=== PATIENT | male | born 2000 | race Caucasian/White ===

== ENCOUNTER 2023-11-25 15:58 | Emergency (ER) | payer OTHER, SELFPAY ==
[2023-11-25] VITALS (11 sets, daily range): BP systolic 127–146; BP diastolic 71–88; PULSE 87–108; RESP 12–20; TEMP 36–37.2; O2SAT 94–100; BMI 25.8
--- NOTE | ~2023-11-25 | XR_ITS ---
EXAMINATION: XR SHOULDER, RIGHT CLINICAL INFORMATION: Dislocation COMPARISON: None available. TECHNIQUE: AP external rotation, Grashey, scapular Y, and axillary views of the right shoulder. FINDINGS: No fracture. There is an anterior inferior dislocation of the shoulder joint. There is soft tissue swelling. XR/XR shoulder RT min 2V IMPRESSION: Anterior inferior dislocation of the shoulder joint. Electronically signed by: Talia Bonilla MD 11/25/2023 05:11 PM EDT
--- NOTE | ~2023-11-25 | XR_ITS ---
EXAMINATION: XR SHOULDER, RIGHT CLINICAL INFORMATION: Post reduction radiographs. COMPARISON: Right shoulder radiographs dated 11/25/2023 at 4:14 PM. TECHNIQUE: Four views of the right shoulder. FINDINGS: There is no fracture or dislocation. The right humeral head is well-seated within the glenoid fossa. Acromioclavicular joint is intact. The visualized right lung is clear. Visualized soft tissues normal in appearance. XR/XR shoulder RT min 2V IMPRESSION: No fracture or dislocation status post reduction. Electronically signed by: Esvin Vidal DO 11/25/2023 08:57 PM EDT
--- NOTE | 2023-11-25 16:03 | ED_ITS ---
HPI - Extremity Injury (Upper) General Chief Complaint: Fall Stated Complaint: Work injury Time Seen by Provider: 11/25/23 17:47 Source: patient and RN notes reviewed History of Present Illness HPI narrative: 23-year-old male presents for evaluation of right shoulder pain. 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 Patient states he caught himself under his arms. Patient states he had instant pain to the right shoulder. He is unable to move his right arm at this time. Denies any previous injury. He is right-hand dominant. Patient states 10/10 pain with movement. He denies any paresthesias or paralysis. The incident occurred at approximately 12:45 p.m. today. He denies any history of fracture or previous dislocation. He denies any tobacco, no regular alcohol use, no drug use. He last ate food at approximately 12:00 p.m. today. Related Data Previous Rx's ?Medication ?Instructions ?Recorded oxycodone-acetaminophen 5 mg-325 1 tab PO Q4-6H PRN severe pain 11/25/23 mg tablet (Endocet) (scale score 7-10) #14 tabs Allergies Allergy/AdvReac Type Severity Reaction Status Date / Time No Known Allergies Allergy Verified 11/25/23 16:06 Review of Systems Cardiovascular: Cardiovascular: Denies chest pain and Denies dyspnea on exertion Respiratory: Respiratory: Denies dyspnea on exertion Gastrointestinal: Gastrointestinal: Denies abdominal pain Musculoskeletal: Musculoskeletal: Denies back pain, Denies myalgias, Reports arthralgias and Reports limited range of motion [facility] Past Medical History Attestation statement: The following information was validated with the patient. [facility] Narrative: Denies past medical Social History Social History Smoked in Last 30 Days: No Use of substances other than those prescribed or required for medical reasons: No Advance Directives: No Advance Directives Information Provided: No Do you have a plan to hurt others: No Plan Physical Exam Vital Signs: Vital Signs: Last Vital Signs Temp 98.9 F 11/25/23 20:50 Pulse 87 11/25/23 20:50 Resp 16 11/25/23 20:50 BP 134/79 11/25/23 20:50 Pulse Ox 95 11/25/23 20:50 O2 Del Method Room Air 11/25/23 20:50 Oxygen Flow Rate 2 11/25/23 19:24 BMI result Body Mass Index 25.8 Const: Other: Appears uncomfortable General: cooperative and healthy appearing HEENT: Other: Oropharynx is moist. No chipped or loose dentition. Resp: Auscultation: clear to auscultation bilaterally Cardio: Rate: regular rate Rhythm: regular rhythm Extrem: Other: Depression to the right shoulder. There is no skin breakdown. No ecchymosis. No crepitus. Sales Operations Lead is 5/5 bilaterally. Decreased range of motion of right arm at the shoulder secondary to pain. Radial pulses are +2 and equal bilaterally. Capillary refills less than 2 seconds Course Course Course Narrative: This is a Rapid Medical Examination (RME) performed by Jeronimo Austin PA-C in [facility]. Full HPI, ROS, assessment and treatment plan per primary provider in the Main ED. 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 reports difficulty moving his right shoulder. + unable to abduct right shoulder. no obvious deformity however exam limited in triage. 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 nv intact distally. Plan: xrs Reevaluation(s) Reevaluation #1: 8:15 p.m. patient is resting comfortably at this time. He is alert and awake. Parents are at the bedside. Reassessment at this time, pulses sensation are intact. Reduction remains intact. Reviewed all discharge instructions with the patient and parents. Reviewed narcotic safety. No further questions at this time Medications Administered Discontinued Medications Generic Name Dose Route Start Last Admin Trade Name Freq PRN Reason Stop Dose Admin Hydromorphone HCl 1 mg 11/25/23 18:24 11/25/23 18:47 Hydromorphone Hcl 1 Mg/Ml Syringe IVPUSH 11/25/23 18:25 1 mg ONCE ONE Administration Protocol Sodium Chloride 1,000 mls @ 999 mls/hr 11/25/23 18:00 11/25/23 20:23 Ns IV 11/25/23 19:[address] Infusion Propofol 50 mg 11/25/23 19:18 11/25/23 19:38 Propofol 200 Mg/20 Ml Vial IVPUSH 11/25/23 19:19 50 mg ONCE ONE Administration Propofol 25 mg 11/25/23 19:20 11/25/23 19:38 Propofol 200 Mg/20 Ml Vial IVPUSH 11/25/23 19:21 25 mg ONCE ONE Administration Medical Decision Making Medical Decision Making [facility] Narrative: 23-year-old male who denies significant past medical history, right shoulder dislocation on exam and confirmed by x-ray. I have had an extensive discussion with the patient and his mother at the bedside regarding treatment options. Discussed with and reviewed all risks and benefits of point of care ultrasound with intra-articular block of the right shoulder for reduction however the patient and mom have refused. The patient was agreeable to a single attempt without medications. This was briefly attempted by this provider and Dr. Collins however was unable to be tolerated and was immediately discontinued. Myself along with Dr. Collins have discussed the risks and benefits of moderate sedation with the patient and his mother. They are agreeable to this. Consent forms have been signed. Differential Diagnosis Differential Diagnoses: The differential diagnosis associated with the presentation includes Fracture Dislocation Contusion Sprain Ligamentous injury Admission/Observation Consideration of admission/observation: Escalation of care including admission/observation considered Consideration for inpatient admission if clinically warranted Radiology Impression Discussion of test interpretation with radiology: I have reviewed the radiologist's reading. Radiologist Impression: Right shoulder postreduction x-ray, successful reduction. No fracture. Reviewed with Dr. Collins. [place] [id number] XRay Report Signed Patient: Donny Irene MR#: [id number] : 2000 Acct:[id number] Age/Sex: 23 / M ADM Date: 11/25/23 Loc: HO.ED Attending Dr: Ordering Physician: Love Austin Date of Service: 11/25/23 Procedure(s): XR shoulder RT min 2V Accession Number(s): [id number] cc: Physician,Unknown ; Love Austin~ EXAMINATION: XR SHOULDER, RIGHT CLINICAL INFORMATION: Dislocation COMPARISON: None available. TECHNIQUE: AP external rotation, Grashey, scapular Y, and axillary views of the right shoulder. FINDINGS: No fracture. There is an anterior inferior dislocation of the shoulder joint. There is soft tissue swelling. XR/XR shoulder RT min 2V IMPRESSION: Anterior inferior dislocation of the shoulder joint. Electronically signed by: Talia Bonilla MD 11/25/2023 05:11 PM EDT Dictated By: Talia Bonilla MD Signed By: <Electronically signed by Talia Bonilla MD in OV> 11/25/23 1711 DD/ 1612 TD/TT: 11/25/23 1618 Bike Shop Manager: DEMETRIUS Prescription Management I considered prescription management with: Pain Medication Procedures Orthopedic Joint Reduction right shoulder dislocation reduction: Time Out Performed: Yes Joint Reduction Location: shoulder Analgesia: procedural sedation ( propofol 75 mg IV given during the procedure) Shoulder Technique Used (if applicable): traction/counter-traction Post-reduction neuro exam: intact Post-reduction vascular: intact Post Reduction X-Ray Obtained: Yes Post Reduction X-Ray Results: reduced Splint Applied: Yes ( right arm sling) Patient Tolerated Procedure: well Procedural Sedation Indication: fracture/dislocation reduction ASA Class: I Mallampati Class: I Time of Last PO Intake: 12:00 Preparation: front desk monitor applied, pulse oximeter, capnometry used, supplemental O2 applied, reversal agents at bedside, suction/airway equipment at bedside and IV secured Patient Tolerated Procedure: well and no complications Complications: none Additional Comments: Consent paperwork completed. Time-out was performed. All propofol administered by Dr. Collins. Reduction completed by this provider. Patient tolerated the procedure without any immediate complications. Sling applied. Right radial pulse +2, capillary refill less than 2 seconds. Postreduction x-ray ordered. Discharge Plan Discharge Clinical Impression: Dislocation of shoulder region Patient Disposition: Home, Self-Care Instructions: Shoulder Dislocation (ED) Additional Instructions: Rest. Ice. Avoid strenuous activity. Sling as directed, keep on at all times. Percocet as directed. Drive, operate heavy machinery, drink alcohol while taking this medication as it will make you sleepy. This is a narcotic medication. Follow-up with orthopedic referral, Dr. Quinones. Call Tuesday to schedule follow up appointment. Watch for any changes in symptoms, severe pain, loss of sensation, or any other concern return immediately to the emergency department Follow-up with your primary care provider. Call this week to schedule a follow- up appointment. Return to the emergency department if you have any worsening of symptoms, or any concerns. Get well soon! Prescriptions: New oxycodone-acetaminophen [Endocet] 5-325 mg tablet 1 tab PO Q4-6H PRN (Reason: severe pain (scale score 7-10)) Qty: 14 0RF Rx Instructions: Partial Fill upon patient request. Referrals: Deven Quinones MD [Physician] - 1 week (Right shoulder dislocation) Stand Alone Forms: Work/School Release Interventions: ED Discharge Assessment Last Done: 11/25/23 20:50 Discharge Date/Time: 11/25/23 20:51 Print Language: Salvadorean
[2023-11-25] MEDS: HYDROmorphone HCl 1 MG/ML SYRINGE IVPUSH (18:47)
[2023-11-25] MEDS: 0.9 % Sodium Chloride 1,000 ML 999 ML IV (19:20)
[2023-11-25] MEDS: propofoL 200 MG/20 ML VIAL 50 MG IVPUSH (19:38)
[2023-11-25] MEDS: propofoL 200 MG/20 ML VIAL 25 MG IVPUSH (19:38)
--- NOTE | 2023-11-25 19:54 | PC.NURSE ---
this rn assumed care of pt. 1919- , Home PA, Osmar RT, this RN and Maliha RN at bedside with pt. safety equipment at bedside. 50mg Propofol administered by provider. 1920- pt noted to still be alert with pain, 25mg propofol administered by provider. 1923- pt noted to be drowsy but alert, shoulder placed by provider. sling placed. 1924- end time called. vss. 1950- pt returned from xray- pt ambulated with steady gait, denies dizziness, sob and chest pain. vs obtained. pt appears at baseline. pt a&ox4.
== END 2023-11-25 20:51 | disposition home or self-care (01) ==
PROVIDERS: Emergency Provider Emergency Medicine Emergency Medical Services
DX: S43.004A Unspecified dislocation of right shoulder joint, initial encounter (principal); W13.3XXA Fall through floor, initial encounter; Y93.H3 Activity, building and construction; Y92.61 Building [any] under construction as the place of occurrence of the external cause; Y99.0 Civilian activity done for income or pay
CPT/HCPCS: 23650; 73030; 96361; 96374; 99152; 99252; 99285; J1170; J2704

== ENCOUNTER 2023-12-14 13:47 | Outpatient (AMB) | payer OTHER, SELFPAY ==
--- NOTE | 2023-12-14 13:51 | MHC.OFFVIS ---
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 Patient reports that he was working on a second floor when he fell through old kassidy, he caught himself under his arms. He presented to [facility] where xrays were taken and placed in a splint. Currently he has intermittent pain that increases with movement however he has had some improvement since injury. His pain is mostly located at the posterior aspect and at times at the anterior aspect. Occasional numbness and tingling. He has been out of work since his injury. 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 He reports he was working on a second floor when he fell through the old kassidy and he caught himself under his arms. He was seen at ER where x-rays were performed and he was placed in a splint. He currently states he has improvement in his pain however he continues to have intermittent pain at the posterior aspect of his in his shoulder that occasionally radiates to his anterior aspect. His pain is aggravated with movement. He also experiences intermittent numbness and tingling in his shoulder. He takes Advil PRN. He has been out of work since his DOI. [facility] Social History (Updated 12/14/23 @ 13:54 by SVETLANA Albright) Patient Tobacco Use Status: Never used Tobacco Current occupational status: employed Current occupation: construction, right hand dominant Review of Systems Const All systems reviewed & are unremarkable except as noted in HPI and below Physical Exam Vital Signs: BMI result Body Mass Index 25.1 Const General: cooperative, healthy appearing, comfortable, no acute distress, well developed and alert Orientation/consciousness: patient oriented x3 HEENT Head: Yes normal to inspection, Yes normocephalic and Yes atraumatic Eyes General: appearance normal, both eyes and all related structures Resp Effort & Inspection: normal respiratory effort and able to speak in complete sentences Cardio Rate: regular rate Peripheral pulses: Peripheral pulses 2+ throughout GI Palpation (GI): Soft to palpation Skin Lesions: no lesions Rashes: no rashes Neuro General: patient oriented x3 Extrem Other: Right shoulder: Normal to inspection. Tenderness over the bicipital groove and along the deltoid region of the shoulder. Forward flexion to 175, external rotation to 90, internal rotation to S1. 5/5 RTC strength. Positive Weaver?s and apprehension test. NVI. Results Reviewed Results Reviewed: X-rays of right shoulder the obtained in ED on nov 24 the office today show successful reduction without any fracture or bony abnormalities. Assessment & Plan Assessment & Plan (1) Dislocation of right shoulder joint: Code(s): S43.004A - Unspecified dislocation of right shoulder joint, initial encounter Category: Medical Qualifiers: Encounter type: initial encounter Qualified Code(s): S43.004A - Unspecified dislocation of right shoulder joint, initial encounter Plan He will discontinue the sling. I encouraged a course of physical therapy to work on ROM, periscapular stabilization and RTC strengthening. He will avoid any type of lifting, pushing, pulling, or carrying more than a cellphone with that right arm for next 6 weeks. 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 Orders: Orders PT Evaluation and Treatment Today S43.004A - Unspecified dislocation of right shoulder joint, initial encounter Patient Instructions: Scribed for Gwendolyn Osorio PA-C, by Jassi Killian vp medical, on 12/14/2023 at 2:15 PM EST.? I, Gwendolyn Osorio PA-C, have personally reviewed and agree with the information entered by the scribe. Coding Level of Care Code New Pt Level 3 (55223) Complex EM visit Add On G2211 Diagnoses Dislocation of right shoulder joint, initial encounter S43.004A Encounter type: initial encounter
[2023-12-14 13:53] VITALS: BMI 25.1
== END 2023-12-14 15:10 | disposition home or self-care (01) ==
PROVIDERS: Visit Provider Physician Assistant
DX: S43.004A Unspecified dislocation of right shoulder joint, initial encounter (principal); W13.3XXA Fall through floor, initial encounter; Z04.2 Encounter for examination and observation following work accident
CPT/HCPCS: 99203; G2211

== ENCOUNTER → 2023-12-14 13:47 | Outpatient (BNVA) | payer OTHER, SELFPAY | PROVIDERS: Visit Provider Physician Assistant | DX: S43.004A Unspecified dislocation of right shoulder joint, initial encounter (principal) | CPT/HCPCS: 99202 ==

== ENCOUNTER 2024-01-25 13:05 | Outpatient (AMB) | payer OTHER, SELFPAY ==
--- NOTE | 2024-01-25 13:14 | MHC.OFFVIS ---
Vital Signs 01/25/24 13:19 Height 5 ft 8 in Weight 165 lb BMI 25.1 Intake Visit Reasons: OV- 6wk f/u rt shoulder disclocation Allergies No Known Allergies Allergy (Verified 01/25/24 13:19) HPI HPI OV- 6wk f/u rt shoulder disclocation: Details: The patient is a 23-year-old male who presents to the office today for follow up of right shoulder dislocation. He states he is doing well since the last visit. He continues to work with PT, he is back to using his shoulder. 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 [facility] Social History Patient Tobacco Use Status: Never used Tobacco Current occupational status: employed Current occupation: construction, right hand dominant Review of Systems Const All systems reviewed & are unremarkable except as noted in HPI and below Physical Exam Vital Signs: BMI result Body Mass Index 25.1 Right shoulder: Normal to inspection. Tenderness over the bicipital groove and along the deltoid region of the shoulder. Forward flexion to 175, external rotation to 90, internal rotation to S1. 5/5 RTC strength. Positive Weaver?s and apprehension test. NVI. Const General: cooperative, healthy appearing, comfortable, no acute distress, well developed and alert Orientation/consciousness: patient oriented x3 HEENT Head: Yes normal to inspection, Yes normocephalic and Yes atraumatic Eyes General: appearance normal, both eyes and all related structures Resp Effort & Inspection: normal respiratory effort and able to speak in complete sentences Cardio Rate: regular rate Peripheral pulses: Peripheral pulses 2+ throughout GI Palpation (GI): Soft to palpation Skin Lesions: no lesions Rashes: no rashes Neuro General: patient oriented x3 Extrem Other: Right shoulder: Normal to inspection. No Tenderness over the bicipital groove or along the deltoid region of the shoulder. Forward flexion to 175, external rotation to 90, internal rotation to S1. 5/5 RTC strength. Negative Weaver?s and apprehension test. NVI. Assessment & Plan Assessment & Plan (1) Dislocation of right shoulder joint: Code(s): S43.004A - Unspecified dislocation of right shoulder joint, initial encounter Category: Medical Qualifiers: Encounter type: initial encounter Qualified Code(s): S43.004A - Unspecified dislocation of right shoulder joint, initial encounter Plan Increase activities as tolerated, he will return to work on February 01, 2024 without restrictions. If there are any questions or concerns, he will contact our office Scribed for Gwendolyn Osorio PA-C, by [employer], on 01/25/2024 at 13:30 PM EST. I, Gwendolyn Osorio PA-C, have personally reviewed and agree with the information entered by the scribe. Coding Level of Care Code Est Pt Level 3 (61356) Complex EM visit Add On G2211 Diagnoses Dislocation of right shoulder joint, initial encounter S43.004A Encounter type: initial encounter
[2024-01-25 13:19] VITALS: BMI 25.1
== END 2024-01-25 14:07 | disposition home or self-care (01) ==
PROVIDERS: Visit Provider Physician Assistant
DX: S43.004A Unspecified dislocation of right shoulder joint, initial encounter (principal)
CPT/HCPCS: 99213; G2211

== ENCOUNTER → 2024-01-25 13:05 | Outpatient (BNVA) | payer OTHER, SELFPAY | PROVIDERS: Visit Provider Physician Assistant | DX: S43.004D Unspecified dislocation of right shoulder joint, subsequent encounter (principal) | CPT/HCPCS: 99212 ==

== ENCOUNTER 2024-01-31 10:00 | Outpatient (RCR) | payer OTHER, SELFPAY ==
--- NOTE | 2023-12-30 12:09 | MHC.PT.EP ---
[facility] [place] [facility] [place] [facility] [place] [facility] [address] [place] [address] [phone] F: [phone] F: [phone] F: [phone] F: [phone] Physical Therapy Plan of Care Date of Evaluation: 12/30/23 Date of Surgery: Diagnosis: This is a 23 yo male presenting to skilled PT with a script for dislocation of R shoulder joint. Assessment: This is a 23 yo male presenting to skilled PT with a script for dislocation of R shoulder joint. This patient is being seen for a WC evaluation of the R shoulder DOI 11/25/23. Patient reports that he was working on a second floor when he fell through old kassidy, he caught himself under his arms. He ended up with an anterior inferior dislocation of the shoulder joint. He went to [facility] ED where his shoulder was relocated, x-ray'd, place in a sling and referred to ortho. At his ortho follow up the note states: He will discontinue the sling. I encouraged a course of physical therapy to work on ROM, periscapular stabilization and RTC strengthening. He will avoid any type of lifting, pushing, pulling, or carrying more than a cellphone with that right arm for next 6 weeks. 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 He returns to them in about a month. He is here today reporting that his pain is not that consistent but in general he is improving. He has symptoms when reaching across the body and when shrugging. He does feel some symptoms with driving, reaching [place]. Pain is described dull and achy. Numbness and tingling has resolved. Pain can be located at the posterior GHJ and subcscap. Assessment reveals pain that ranges from up to a 3/10 at the worst. Patient demos decreased R shoulder ROM, strength of R shoulder and scap, TTP at subscap, UT and impaired posture with anterior R GHJ. Based on functional limitations, impaired QOL and pain tolerance patient is a good candidate for skilled PT 2x/wk for 4wks. Frequency and Duration: The patient will be seen 2x/wk for 4wks Short Term Goals: (In 2 weeks) Demo I with HEP Improve shoulder AROM to WNL Demo proper scapular recruitment with appropriate shoulder strengthening exercises Events Administrative Assistant Goals: (in 4 wks) Demo at least 1 grade improvement in MMT for shoulder and scap Improve SPADI by at least 10 points Improve overall functional QOL by at least 90% Improve pain to 0/10 Treatment Plan: Modalities to reduce pain, spasms and effusion. Manual therapy to restore motion and function. Therapeutic exercise to improve strength and flexibility. Neuromuscular re-education for posture and balance. Therapeutic activities to return to functional activities of daily living. Electronically signed by: Radha Espinoza PT Please sign and return to therapist. Thank you for your referral.
--- NOTE | 2024-03-01 14:16 | MHC.PT.DC ---
[facility] Office [place] [facility] [place] Office [address] [place] [address] [phone] F: [phone] F: [phone] F: [phone] F: [phone] Physical Therapy Discharge Report Diagnosis: This is a 23 yo male presenting to skilled PT with a script for dislocation of R shoulder joint. Date of Surgery: Date of Evaluation: 12/30/23 Date of Discharge: 03/01/24 Treatments to Date: 8 Cancellations to Date: 0 No Shows to Date: 0 Discharge Status: Achieved Goals Improved Function Independent with HEP Discharge Summary: Patient demos WFL shoulder AROM but is slightly limited on the R compared to the L. He demos improving strength, he demos decreased/no pain and is I in HEP. He is returning to work tomorrow and feels ready. Plan to DC in 30 days unless symptoms change. Electronically signed by: Radha Espinoza PT Please sign and return to therapist. Thank you for your referral.
== END 2024-03-01 14:16 | disposition home or self-care (01) ==
LOC: HO.PTCHIC 10:00
PROVIDERS: Visit Provider Physician Assistant
DX: S43.004D Unspecified dislocation of right shoulder joint, subsequent encounter (principal)
CPT/HCPCS: 97110; 97140; 97162